=== PATIENT | male | born 1995 | race Caucasian/White ===

== ENCOUNTER 2018-11-15 01:58 | Emergency (ER) | payer MEDICAID ==
[~2018-11-15] VITALS: Ht 162.6 cm; Wt 93.0 kg
[2018-11-15] MEDS ORDERED: VISCOUS LIDOCAINE 2% 15 ML UDC MM ONE (03:00)
[2018-11-15] MEDS ORDERED: LIDOCAINE HCL/PF 1% 10 MG/ML 5ML VIAL IJ ONE (03:00)
[2018-11-15] MEDS ORDERED: KETOROLAC 30MG/ML VIAL IM ONE (04:15)
[2018-11-15 04:46] VITALS: BP 135/98
== END 2018-11-15 04:50 | disposition home or self-care (01) ==
LOC: ER 01:58
DX: T19.4XXA Foreign body in penis, initial encounter (principal); F12.10 Cannabis abuse, uncomplicated; W22.8XXA Striking against or struck by other objects, initial encounter; Y93.89 Activity, other specified; Y92.89 Other specified places as the place of occurrence of the external cause; Y99.8 Other external cause status
CPT/HCPCS: 54450; 99284; A4217; J3490; Z7610